=== PATIENT | female | born 1980 | race Two or more races ===

== ENCOUNTER 2023-08-12 11:00 | Emergency (ER) | payer OTHER ==
[~2023-08-12] VITALS: Ht 154.9 cm; Wt 75.7 kg
[2023-08-12] MEDS ORDERED: CLONAZEPAM1 M1 PO (11:40)
[2023-08-12] MEDS ORDERED: WELLBUTRIN SR100 MG (11:40)
[2023-08-12 15:47] LABS: PH,URINE 6.5 (5.0-8.0); URINE APPEARANCE Clear; URINE BILIRRUBIN Negative (NEGATIVE); URINE BLOOD Negative; URINE COLOR Yellow; URINE GLUCOSE Negative (NEGATIVE); URINE LEUKOCYTE Negative; URINE NITRATE Negative; URINE PROTEIN Negative (NEGATIVE); URINE UROBILINOGEN 0.2 E.U./dl
[2023-08-12 15:50] LABS: URINE EPITHELIAL CELLS 9.7 uL (0.0-38.8); URINE RBC 5.1 uL (0.0-20.8); URINE WBC 2.9 uL (0.0-23.2)
[2023-08-12 15:59] LABS: HEMOGLOBIN 14.2 g/dL (12.0-15.00); MEAN CELL VOLUME 88.7 fL (80.00-100.00); MEAN CORPUSCULAR HGB CONC 33.8 g/dl (32.0-36.0); PLATELET COUNT 316 K/uL (150-450); RED BLOOD COUNT 4.74 M/uL (4.00-6.00); RED CELL DISTRIBUTION WIDTH 13.9 % (11.5-14.5)
[2023-08-12 16:16] LABS: CALCIUM 9.1 mg/dL (8.5-10.1); CREATININE SERUM 0.75 mg/dL (0.55-1.02); GFR 84.34; POTASSIUM 3.54 mEq/L (3.5-5.1)
[2023-08-12] MEDS ORDERED: DICLOFENAC POTA50 MG PO (18:51)
== END 2023-08-12 20:00 | disposition home or self-care (01) ==
LOC: ER 11:01
PROVIDERS: Emergency Medicine
DX: R10.2 Pelvic and perineal pain (principal)

== ENCOUNTER → 2024-04-10 | Emergency (ER) | payer OTHER ==
[~2024-04-10] VITALS: Ht 154.9 cm; Wt 77.1 kg
[~2024-04-10] MED LIST: CLONAZEPAM1 M1 PO; DEPAKOTE ER250 MG; DICLOFENAC POTA50 MG PO; WELLBUTRIN SR100 MG
== END | disposition left against medical advice (07) ==
LOC: ER 21:09
DX: Z53.21 Procedure and treatment not carried out due to patient leaving prior to being seen by health care provider (principal)

== ENCOUNTER 2024-04-29 20:31 | Emergency (ER) | payer OTHER ==
[~2024-04-29] VITALS: Ht 154.9 cm; Wt 77.1 kg
[2024-04-30] MEDS ORDERED: RINGERS SOLUTION,LACTATED 1,000 ML IV STA (05:05)
[2024-04-30] MEDS ORDERED: MEPERIDINE HCL/PF 50 MG/ML VIAL IM STA (05:06)
[2024-04-30] MEDS ORDERED: KETOROLAC TROMETHAMINE 30 MG VIAL IV STA (05:06)
[2024-04-30] MEDS ORDERED: PROMETHAZINE HCL 25 MG/ML AMPUL IM STA (05:07)
[2024-04-30] MEDS ORDERED: KETOROLAC TROMETHAMINE 30 MG VIAL ONE (05:10)
[2024-04-30] MEDS ORDERED: DIATRIZOATE MEGLUMINE, SODIUM 30 ML BOTTLE ONE (05:10)
[2024-04-30] MEDS ORDERED: PROMETHAZINE HCL 50 MG/ML AMPUL IM ONE (05:10)
[2024-04-30] MEDS ORDERED: BARIUM SULFATE 450 ML ORAL.SUSP PO ONE (05:17)
[2024-04-30 06:20] LABS: HEMATOCRIT 40.4 % (36.0-45.00); HEMOGLOBIN 14.1 g/dL (12.0-15.00); MEAN CELL VOLUME 87.5 fL (80.00-100.00); MEAN CORPUSCULAR HEMOGLOBIN 30.5 pg (27.00-32.0); MEAN CORPUSCULAR HGB CONC 34.8 g/dl (32.0-36.0); RED BLOOD COUNT 4.62 M/uL (4.00-6.00)
[2024-04-30 06:22] LABS: INR 0.98; PROTHROMBIN TIME 10.3 SECONDS (9.0-11.5)
[2024-04-30 06:30] LABS: PARTIAL THROMBOPLASTIN TIME < 20.0 SECONDS (22.0-34.0)
[2024-04-30 06:40] LABS: ALBUMIN 3.6 gm/dL (3.4-5.0); BILIRUBIN TOTAL 0.3 mg/dL (0.3-1.2); CALCIUM 9.1 mg/dL (8.5-10.1); CREATININE SERUM 0.65 mg/dL (0.55-1.02); GFR 99.02; GLOBULINA 3.8 G/DL (2.4-3.5); POTASSIUM 4.48 mEq/L (3.5-5.1); TOTAL PROTEIN 7.4 gm/dL (6.4-8.2)
[2024-04-30 07:01] LABS: PLATELET COUNT 224 K/uL (150-450)
[2024-04-30 07:09] LABS: PH,URINE 5.5 (5.0-8.0); URINE APPEARANCE Cloudy; URINE BILIRRUBIN Negative (NEGATIVE); URINE BLOOD Negative; URINE COLOR Yellow; URINE GLUCOSE Negative (NEGATIVE); URINE KETONE Trace (NEGATIVE); URINE LEUKOCYTE Negative; URINE NITRATE Negative; URINE PROTEIN Negative (NEGATIVE); URINE UROBILINOGEN 0.2 E.U./dl
[2024-04-30 07:10] LABS: URINE BACTERIA 3114.6 uL (0.0-1933); URINE EPITHELIAL CELLS 91.3 uL (0.0-38.8); URINE RBC 8.5 uL (0.0-20.8)
[2024-04-30 07:13] LABS: URINE CAST 0.15 uL (0.0-1.40)
[2024-04-30] MEDS ORDERED: MAGNESIUM HYDROXIDE 400 MG/5 ML ML PO STA (12:33)
[2024-04-30] MEDS ORDERED: LACTULOSE 10 G/15 ML ML PO STA (12:34)
[2024-04-30] MEDS ORDERED: LACTULOSE 20 G/30 ML BLIST.PACK ONE (12:41)
[2024-04-30] MEDS ORDERED: MAGNESIUM HYDROXIDE 30 ML BLIST.PACK PO ONE (12:42)
== END 2024-04-30 13:23 | disposition home or self-care (01) ==
LOC: ER 20:32
DX: R10.2 Pelvic and perineal pain (principal); K59.00 Constipation, unspecified
CPT/HCPCS: 36415; 74177; 96365; 96372; J1885; J2250; J3490

== ENCOUNTER 2024-09-08 14:40 | Emergency (ER) | payer OTHER ==
[~2024-09-08] VITALS: Ht 154.9 cm; Wt 77.1 kg
[2024-09-08] MEDS ORDERED: METOPROLOL SUCC25 MG PO (15:34)
[2024-09-08] MEDS ORDERED: BUPROPION HCL150 M1 PO (15:35)
[2024-09-08] MEDS ORDERED: DICLOFENAC POTA50 MG PO (15:35)
[2024-09-08] MEDS ORDERED: BUSPIRONE HCL10 MG PO (15:35)
[2024-09-08] MEDS ORDERED: KETOROLAC TROMETHAMINE 30 MG VIAL IV ONE (16:30)
[2024-09-08 16:45] LABS: HEMATOCRIT 39.9 % (36.0-45.00); HEMOGLOBIN 13.8 g/dL (12.0-15.00); MEAN CELL VOLUME 88.9 fL (80.00-100.00); MEAN CORPUSCULAR HEMOGLOBIN 30.7 pg (27.00-32.0); MEAN CORPUSCULAR HGB CONC 34.5 g/dl (32.0-36.0); PLATELET COUNT 271 K/uL (150-450); RED BLOOD COUNT 4.49 M/uL (4.00-6.00); RED CELL DISTRIBUTION WIDTH 13.8 % (11.5-14.5)
[2024-09-08 17:00] LABS: PH,URINE 6.5 (5.0-8.0); URINE APPEARANCE Clear; URINE BILIRRUBIN Negative (NEGATIVE); URINE BLOOD Negative; URINE COLOR Yellow; URINE GLUCOSE Negative (NEGATIVE); URINE KETONE Negative (NEGATIVE); URINE LEUKOCYTE Negative; URINE NITRATE Negative; URINE PROTEIN Negative (NEGATIVE); URINE UROBILINOGEN 0.2 E.U./dl
[2024-09-08 17:03] LABS: URINE BACTERIA 103.9 uL (0.0-1933); URINE EPITHELIAL CELLS 7.2 uL (0.0-38.8); URINE RBC 8.1 uL (0.0-20.8); URINE WBC 2.6 uL (0.0-23.2)
[2024-09-08 17:30] LABS: CALCIUM 8.8 mg/dL (8.5-10.1); CREATININE SERUM 0.77 mg/dL (0.55-1.02); GFR 81.43; POTASSIUM 4.32 mEq/L (3.5-5.1)
== END 2024-09-08 18:06 | disposition home or self-care (01) ==
LOC: ER 14:43
PROVIDERS: Emergency Medicine
DX: R10.2 Pelvic and perineal pain (principal); F32.89 Other specified depressive episodes
CPT/HCPCS: 36415; 76830; 93005; 96365; 99284; J1885

== ENCOUNTER 2025-01-19 13:06 | Emergency (ER) | payer OTHER ==
[~2025-01-19] VITALS: Ht 154.9 cm; Wt 77.1 kg
[~2025-01-19 13:06] MED LIST changes: +BUPROPION HCL150 M1 PO; +BUSPIRONE HCL10 MG PO; +METOPROLOL SUCC25 MG PO
[2025-01-19 13:30] VITALS: BP 126/88; O2SAT 100
[2025-01-19] MEDS ORDERED: KETOROLAC TROMETHAMINE 60 MG VIAL IM STA (14:28)
[2025-01-19] MEDS ORDERED: KETOROLAC TROMETHAMINE 60 MG VIAL IM ONE (14:29)
[2025-01-19 15:13] LABS: HEMATOCRIT 40.6 % (36.0-45.00); HEMOGLOBIN 14.3 g/dL (12.0-15.00); MEAN CELL VOLUME 86.3 fL (80.00-100.00); MEAN CORPUSCULAR HEMOGLOBIN 30.5 pg (27.00-32.0); MEAN CORPUSCULAR HGB CONC 35.3 g/dl (32.0-36.0); PLATELET COUNT 332 K/uL (150-450); RED CELL DISTRIBUTION WIDTH 13.8 % (11.5-14.5)
[2025-01-19 15:26] LABS: CALCIUM 9.2 mg/dL (8.5-10.1); CREATININE SERUM 0.7 mg/dL (0.55-1.02); GFR 90.9; POTASSIUM 3.8 mEq/L (3.5-5.1)
[2025-01-19 16:01] LABS: URINE APPEARANCE Clear; URINE BILIRRUBIN Negative (NEGATIVE); URINE BLOOD Negative; URINE COLOR Yellow; URINE GLUCOSE Negative (NEGATIVE); URINE KETONE Negative (NEGATIVE); URINE LEUKOCYTE Negative; URINE NITRATE Negative; URINE PROTEIN Negative (NEGATIVE); URINE UROBILINOGEN 0.2 E.U./dl
[2025-01-19 16:05] LABS: URINE EPITHELIAL CELLS 9.3 uL (0.0-38.8); URINE RBC 11.7 uL (0.0-20.8)
[2025-01-19 16:10] LABS: URINE WBC 1.5 uL (0.0-23.2)
[2025-01-19] MEDS ORDERED: NORFLEX100MG PO (18:32)
[2025-01-19] MEDS ORDERED: MECLIZINE HCL 12.5 MG TABLET PO ONE ×2 (18:43→18:45)
== END 2025-01-19 18:48 | disposition home or self-care (01) ==
LOC: ER 13:07
PROVIDERS: General Practice
DX: R10.2 Pelvic and perineal pain (principal); I10 Essential (primary) hypertension